=== PATIENT | male | born 1955 | race Caucasian/White ===

== ENCOUNTER 2018-08-28 13:35 | Outpatient (CLI) | payer OTHER ==
--- NOTE | 2018-08-28 14:12 | XRAY Report ---
Reason: WRIST JOINT PAIN, RIGHT Procedure Date: 08/28/2018 Accession Number: [id number] / [id number] Procedure: XR - Wrist 3 View RT CPT Code: FULL RESULT: EXAM: RIGHT WRIST RADIOGRAPHY EXAM DATE: 08/28/2018 01:46 PM. CLINICAL HISTORY: Chronic right wrist pain COMPARISON: None. TECHNIQUE: 3 views. FINDINGS: Bones: The navicular waist is not optimally evaluated; otherwise no evidence of acute fracture. There is moderately severe joint space narrowing of the lunate-capitate carpal joint. There is an approximate 7-8 mm diameter mature appearing osseous body located in the dorsal radial compartment right wrist, possibly intra-articular. Joints: Normal. No subluxations. Soft Tissues: Normal. No soft tissue swelling. IMPRESSION: 1. The navicular waist is not optimally evaluated. Otherwise no evidence of acute fracture. 2. Moderately severe intercarpal joint osteoarthritis as described above. 3. Subcentimeter round mature appearing possible intra-articular loose body located in the dorsal radial wrist compartment. This finding and the incomplete evaluation of the navicular bone, could both be evaluated by wrist MRI. IV contrast is not required. If the patient is not a MRI candidate, recommend additional navicular views. [facility]
== END 2018-08-28 13:36 | disposition home or self-care (01) ==
LOC: DI 13:35
PROVIDERS: ATTEND Nurse Practitioner
DX: M19.031 Primary osteoarthritis, right wrist (principal)

== ENCOUNTER 2018-09-12 13:12 | Outpatient (CLI) | payer OTHER ==
--- NOTE | 2018-09-13 10:38 | MRI Report ---
Reason: LOOSE BODY IN RT WRIST JOINT, WRIST JOINT PAIN, RT Procedure Date: 09/12/2018 Accession Number: [id number] / [id number] Procedure: MRI - Wrist RT W/O CPT Code: FULL RESULT: EXAM: RIGHT WRIST MRI WITHOUT CONTRAST EXAM DATE: 09/12/2018 02:51 PM. CLINICAL HISTORY: Loose body in right wrist joint, wrist joint pain, right. COMPARISON: WRIST 3 VIEW RT 08/28/2018 1:42 PM. TECHNIQUE: Multiplanar, multisequence T1-weighted and fluid-sensitive sequences of the wrist without contrast. Other: None. FINDINGS: Bones: The scaphoid lunate angle is 74 degrees. Cartilage and Joints: There is an osseous body 7.5 mm in length, 1.5 cm in transverse dimension and 4 mm in the AP dimension at the dorsal aspect lunate capitate articulation (image 11 series 1001 and image 14 series 801). Osseous body 5 mm ventral aspect of distal ulna styloid. Osseous body 1.3 cm radial aspect of first carpometacarpal compartment. Osseous body 3 mm ulnar aspect of first carpometacarpal compartment. Severe osteoarthritis first carpometacarpal compartment. Severe osteoarthritis scaphoid multangular compartment. Complex degenerative tear triangular fibrocartilage. Ligaments: Chronic tear scapholunate ligament. Negative for disruption lunotriquetral ligament. The visualized other intrinsic, extrinsic and collateral ligaments are unremarkable. Tendons: The extensor compartment I through and flexor tendons are unremarkable. Musculature: No edema or fatty atrophy. Other: The contents of the carpal tunnel, including the median nerve, are unremarkable. Guyons canal is unremarkable. Negative for increased fluid distal radioulnar joint. Negative for increased fluid mid carpal compartment. The subcutaneous tissues are unremarkable. Subcutaneous cyst 1.1 x 1.0 x 1.3 cm ulnar aspect of the wrist (image 15 series 401 and image 5 series 801). Styloid recess synovial thickening or ganglion cyst. IMPRESSION: 1. Severe osteoarthritis first carpometacarpal compartment and scaphoid multangular compartment. 2. Osseous body radial aspect first carpometacarpal compartment 1.1 cm and there is a 3 mm osseous fragment radial aspect first carpometacarpal compartment. Probable remote fracture. 3. Large osseous fragment 1.5 cm in greatest dimension dorsal aspect of the lunate capitate articulation consistent with remote fracture. 4. Probable remote fracture 5 mm ulnar styloid. 5. Styloid recess ganglion cyst and/or synovitis. Evaluate for rheumatoid arthritis. 6. 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 7. Complex degenerative tear triangular fibrocartilage. [facility]
== END 2018-09-12 13:13 | disposition home or self-care (01) ==
LOC: DI 13:12
PROVIDERS: ATTEND Nurse Practitioner
DX: M19.031 Primary osteoarthritis, right wrist (principal); S63.591A Other specified sprain of right wrist, initial encounter; M24.031 Loose body in right wrist

== ENCOUNTER 2018-09-17 07:14 | Outpatient (CLI) | payer OTHER ==
[2018-09-17 07:32] LABS: BASOPHILS # (AUTO) 0.1 10^3/uL (0.0-0.1); BASOPHILS % (AUTO) 1.7 %; EOSINOPHILS # (AUTO) 0.2 10^3/uL (0.0-0.7); EOSINOPHILS % (AUTO) 5.8 %; HGB - HEMOGLOBIN 14.4 g/dL (14.0-18.0); LYMPHOCYTES # (AUTO) 1.1 10^3/uL (1.5-3.5); LYMPHOCYTES % (AUTO) 30.5 %; MEAN CORPUSCULAR HGB CONC 33.8 g/dL (32.0-36.0); MEAN CORPUSCULAR VOLUME 97.7 fL (80.0-94.0); MEAN PLATELET VOLUME 10.2 fL (7.4-11.4); MONOCYTES # (AUTO) 0.6 10^3/uL (0.0-1.0); MONOCYTES % (AUTO) 15.5 %; NEUTROPHILS # (AUTO) 1.7 10^3/uL (1.5-6.6); NEUTROPHILS % (AUTO) 46.5 %; PLT - PLATELET COUNT 172 10^3/uL (130-450); RED BLOOD COUNT 4.36 10^6/uL (4.70-6.10); RED CELL DISTRIBUTION WIDTH 12.7 % (12.0-15.0); WHITE BLOOD COUNT 3.6 x10^3/uL (4.8-10.8)
[2018-09-17 07:45] LABS: ALBUMIN 4.2 g/dL (3.2-5.5); ALBUMIN/GLOBULIN RATIO 1.9 (1.0-2.2); ALKALINE PHOSPHATASE 53 IU/L (42-121); ALT ALANINE AMINOTRANSFERASE 19 IU/L (10-60); AST ASPARTATE AMINOTRANSFERASE 25 IU/L (10-42); BUN - BLOOD UREA NITROGEN 21 mg/dL (6-20); CALCIUM 8.9 mg/dL (8.5-10.3); CARBON DIOXIDE - CO2 26 mmol/L (21-32); CHLORIDE 107 mmol/L (101-111); CHOL/HDL RATIO 1.9 (<5.0); CHOLESTEROL 149 mg/dL; CREATININE 0.9 mg/dL (0.6-1.2); GFR - MDRD 85 (>89); GLUCOSE 90 mg/dL (70-100); HDL CHOLESTEROL 78 mg/dL; SODIUM 143 mmol/L (135-145); TOTAL PROTEIN 6.4 g/dL (6.7-8.2)
== END 2018-09-17 07:15 | disposition home or self-care (01) ==
LOC: LAB 07:14
PROVIDERS: ATTEND Nurse Practitioner
DX: Z00.00 Encounter for general adult medical examination without abnormal findings (principal)
CPT/HCPCS: 36415; 80053; 80061; 83721; 84153; 84443; 85025

== ENCOUNTER 2019-02-17 08:27 | Day surgery (SDC) | payer OTHER ==
[2019-02-17] MEDS ORDERED: fentaNYL 250 MCG/5 ML VIAL IVP ONE (08:28)
[2019-02-17] MEDS ORDERED: MIDAZOLAM 2 MG/2 ML VIAL IVP ONE (08:28)
[2019-02-17] MEDS ORDERED: LACTATED RINGERS 1,000 ML IV ONE (08:46)
[2019-02-17 11:53] VITALS: BP 111/81
== END 2019-02-17 08:28 | disposition home or self-care (01) ==
LOC: SDS 08:27
PROVIDERS: ATTEND Internal Medicine Gastroenterology
PROC: 0DBN8ZZ Excision of Sigmoid Colon, Via Natural or Artificial Opening Endoscopic (ICD-10-PCS; 2019-02-17)
PROC: 0DBP8ZZ Excision of Rectum, Via Natural or Artificial Opening Endoscopic (ICD-10-PCS; 2019-02-17)
PROC: 0DBM8ZZ Excision of Descending Colon, Via Natural or Artificial Opening Endoscopic (ICD-10-PCS; principal; 2019-02-17 09:45)
DX: D12.7 Benign neoplasm of rectosigmoid junction (principal); D12.4 Benign neoplasm of descending colon; D12.5 Benign neoplasm of sigmoid colon; Z87.891 Personal history of nicotine dependence
CPT/HCPCS: 45380; J7120

== ENCOUNTER 2019-09-11 14:09 | Outpatient (CLI) | payer OTHER | END 2019-09-11 14:10 | disposition home or self-care (01) | LOC: LAB 14:09 | PROVIDERS: ATTEND Family Medicine | DX: Z00.00 Encounter for general adult medical examination without abnormal findings (principal); Z11.59 Encounter for screening for other viral diseases | CPT/HCPCS: 81599 ==